=== PATIENT | male | born 1950 | race African-American/Black ===

== ENCOUNTER 2017-07-04 14:29 | Emergency (ER) | payer SELFPAY ==
[~2017-07-04] VITALS: Ht 182.9 cm; Wt 117.9 kg
[2017-07-04] MEDS ORDERED: FUROSEMIDE40 MG ORAL (14:51)
[2017-07-04] MEDS ORDERED: ASPIR 8181 MG ORAL (14:51)
[2017-07-04] MEDS ORDERED: HYDRALAZINE HCL50 MG ORAL (14:51)
[2017-07-04] MEDS ORDERED: AMIODARONE HCL400 M1 ORAL (14:51)
[2017-07-04] MEDS ORDERED: ISOSORBIDE MONO20 MG PO (14:51)
[2017-07-04] MEDS ORDERED: SPIRONOLACTONE1 EACH ORAL (14:51)
[2017-07-04] MEDS ORDERED: CARVEDILOL6.25 MG ORAL (14:51)
[2017-07-04] MEDS ORDERED: ATORVASTATIN CA40 MG ORAL (14:51)
[2017-07-04 15:07] VITALS: BP 147/79
--- NOTE | 2017-07-04 15:21 | Emergency Room Report ---
History of Present Illness General Chief Complaint: General Complaint Source: Patient, EMS Present Illness HPI 58-year-old male brought in by EMS for subjective "allergic reaction" for multiple months, however denies associated rash, shortness of breath, chest pain , throat tightness. Patient states that he's more confused over a mile and had to medication he's been given. Was just discharged from [facility] yesterday. [facility] has also been at the [facility] and [facility]. Patient has a bag with multiple bottles of medication including a lot of repeat medications, and medications with different doses, without any clear and instruction as to when he supposed to take them. He has prescriptions for both metoprolol and carvedilol and Rx for 200mg and 400mg amiodarone. He otherwise denies chest pain, SOB, palpitations, abd pain, fever/chills. Allergies: Coded Allergies: BENAZEPRIL (Verified Allergy, Intermediate, 07/04/17) Patient History Past Medical History: HTN, CAD Past Surgical History: CABG Pertinent Family History: none Immunizations: UTD Reviewed Nursing Documentation: PMH: Agreed, PSxH: Agreed Nursing Documentation-PMH Hx Cardiac Problems: Yes Hx Hypertension: Yes Review of Systems All Other Systems: negative except mentioned in HPI Physical Exam Vital Signs Date Time Temp Pulse Resp B/P (MAP) Pulse Ox O2 Delivery O2 Flow Rate FiO2 07/04/17 14:31 97.8 58 16 173/102 98 Room Air 97.9 Sp02 EP Interpretation: reviewed, normal General Appearance: normal inspection, well appearing, no apparent distress, alert, GCS 15, non-toxic, obese Head: normocephalic, atraumatic Eyes: bilateral eye PERRL, bilateral eye EOMI ENT: normal ENT inspection, hearing grossly normal, normal pharynx, no angioedema, normal voice, TMs + canals normal, uvula midline, moist mucus membranes Neck: normal inspection, full range of motion, supple, thyroid normal, no meningismus, no bony tend Respiratory: normal inspection, lungs clear, normal breath sounds, no rhonchi, no respiratory distress, no retraction, no accessory muscle use, no wheezing, speaking full sentences Cardiovascular #1: regular rate, rhythm, no edema, no JVD, normal capillary refill Gastrointestinal: normal inspection, normal bowel sounds, non tender, soft, no mass, no peritonitis, non-distended, no guarding, no hernia, no pulsatile mass Genitourinary: no CVA tenderness Musculoskeletal: normal inspection, back normal, normal range of motion, no calf tenderness, pelvis stable, Sivakumar's Sign negative Neurologic: normal inspection, alert, oriented x3, responsive, forestry technician III-XII nml as tested, motor strength/tone normal, cerebellar normal, normal gait, speech normal Psychiatric: normal inspection, judgement/insight normal, mood/affect normal, no suicidal/homicidal ideation, no delusions, anxious Skin: normal inspection, normal color, no rash Lymphatic: normal inspection, no adenopathy Medical Decision Making Diagnostic Impression: Primary Impression: Encounter for generalized patient complaints ER Course VSS, afebrile Anxious appearing Not having allergic reaction given "months" and was recently DCed from [facility] I spent 30minutes going thru patients medications and reorganizing for him and wrote out instructions on how to properly take RN also went thru Rx list and how to take with him Currently asymptomatic Will DC ER course: Patient has remained stable during ED stay. Disposition: Patient is to be discharged to home. Patient is instructed to follow up with their primary care doctor within 5 days. Strict return precautions discussed with patient such as fever, chills, worsening/severe pain, nausea, vomiting, which may indicate severe illness. Patient verbalizes understanding and agrees with plan. Please note that this Emergency Department Report was dictated using [employer] aide technology software, occasionally this can lead to erroneous entry secondary to interpretation by the dictation equipment Last Vital Signs Date Time Temp Pulse Resp B/P (MAP) Pulse Ox O2 Delivery O2 Flow Rate FiO2 07/04/17 15:07 97.5 82 18 147/79 100 Room Air Status: improved Disposition: HOME, SELF-CARE Patient Instructions: Polypharmacy Problems, [id number] Additional Instructions: ALWAYS take - Take Clopidegrel 75mg daily each morning - Take losartan 25mg daily - Take Carvedilol 6.25mg twice a day - Take Mexiletene 200mg twice a day - Take amiodarone 200mg twice a day - Take atorvastatin 80mg once per day at bedtime NEEDED - take hydralazine 50mg every 8 hours ONLY IF Systolic BP (top number) >180 - Take 2 famotidine 20mg tablets at night for acide reflux VALERIO SULLIVAN M.D. Jul 04, 2017 15:21
== END 2017-07-04 15:08 | disposition home or self-care (01) ==
LOC: EDBD 14:29 → EMR 14:57
DX: Z04.8 Encounter for examination and observation for other specified reasons (principal); I10 Essential (primary) hypertension; I25.10 Atherosclerotic heart disease of native coronary artery without angina pectoris; Z95.1 Presence of aortocoronary bypass graft; Z88.8 Allergy status to other drugs, medicaments and biological substances
CPT/HCPCS: 99283